=== PATIENT | female | born 1955 | race Two or more races ===

== ENCOUNTER 2023-03-19 13:17 | Inpatient (IN) | payer OTHER ==
[~2023-03-19] VITALS: Ht 170.2 cm; Wt 96.1 kg
[2023-03-19] MEDS ORDERED: PROCHLORPERAZINE EDISYLATE 5 MG/ML 2ML VIAL IM ONE ×2 (13:30→18:15)
[2023-03-19] MEDS ORDERED: SODIUM CHLORIDE 0.9% 1,000 ML IVB ONE (13:30)
[2023-03-19 14:43] LABS: Basophils # (auto) 0.1 10 ^3/uL (0-0.2); Eosinophils # (auto) 0 10 ^3/uL (0-0.8); Eosinophils % (auto) 0.2 % (0.0-7.0); Lymphocytes # (auto) 1.7 10 ^3/uL (0.4-5.4); White Blood Cell 14.1 10^3/uL (4.4-10.8)
[2023-03-19 14:44] LABS: Albumin 2.8 g/dL (3.4-5.0); Calcium 9.6 mg/dL (8.5-10.1); Potassium 3.9 mmol/L (3.5-5.1)
[2023-03-19 14:45] LABS: Basophils % (auto) 0.4 % (0.0-2.0); Hematocrit 40.2 % (36.0-46.0); Hemoglobin 13.3 g/dL (12.2-16.2); Lymphocytes % (auto) 12.3 % (10.0-50.0); Mean Corpuscular Hemoglobin 27.4 pg (28.0-32.0); Mean Corpuscular Volume 83.2 fL (80.0-100.0); Neutrophils # (auto) 11.3 10 ^3/uL (1.6-8.6); Neutrophils % (auto) 80.1 % (37.0-80.0); Red Blood Cells 4.83 10^6/uL (4.0-5.20); Red Cell Distribution Width 14.8 % (11.8-14.3)
[2023-03-19 14:48] LABS: Bilirubin, Total 0.3 mg/dL (0.2-1.0)
[2023-03-19 15:03] VITALS: PULSE 63; RESP 13; O2SAT 99
[2023-03-19] MEDS ORDERED: CARVEDILOL 3.125 MG TAB PO ONE (15:15)
[2023-03-19 16:02] LABS: INR 1.1 (0.9-1.15); Partial Thromboplastin Time 30.4 SEC (24.5-34.5)
[2023-03-19] MEDS ORDERED: LISINOPRIL 20 MG TAB PO ONE (16:15)
[2023-03-19] MEDS ORDERED: amLODIPine BESYLATE 5 MG TAB PO ONE (16:15)
[2023-03-19 17:26] LABS: Urine Bacteria NONE SEEN /hpf (None Seen); Urine Blood Negative /uL (Negative); Urine Specific Gravity 1.014 (1.001-1.035); Urine WBC 1 /hpf (0 - 5)
[2023-03-19] MEDS ORDERED: MORPHINE SULFATE INJ 2 MG/ml SYRG IV ONE (18:15)
[2023-03-19] MEDS ORDERED: PANTOPRAZOLE 40 MG/10 ML VIAL INJ IV ONE (18:15)
[2023-03-19] MEDS ORDERED: MAGNESIUM CITRATE SOLUTION 300 ML BTL PO ONE (18:15)
[2023-03-19 19:30] VITALS: PULSE 89; RESP 19; O2SAT 94
[2023-03-19] MEDS ORDERED: NITROGLYCERIN 0.4 MG SL TAB SL PRN (20:15)
[2023-03-19] MEDS ORDERED: DOCUSATE SOD 100 MG CAP PO PRN (20:15)
[2023-03-19] MEDS ORDERED: FLEET ENEMA(ADULT) 135 ML PR ONE (20:15)
[2023-03-19] MEDS ORDERED: hydrALAZINE HCL 20 MG/ML VL IV PRN (20:15)
[2023-03-19] MEDS ORDERED: DEXTROSE (50%) 50ML SYRG IV PRN (20:15)
[2023-03-19] MEDS ORDERED: ACETAMINOPHEN 325 MG TAB PO PRN (20:15)
[2023-03-19] MEDS: ACCU-CHEK COMFORT CURVE STRIP VI SCH (21:47)
[2023-03-19] MEDS: ATORVASTATIN 20 MG TAB PO SCH (22:02)
[2023-03-19] MEDS: SODIUM CHLOR 0.9% PF (SALINE LOCK) 10ML VIAL/SYR IV SCH (22:02)
[2023-03-19] MEDS: FAMOTIDINE (10MG/ML) 2ML VL IV SCH (22:03)
[2023-03-19] MEDS: InsuLIN REG 1unit/0.01ml Soln (100units/ml) SC SCH (22:04)
[2023-03-19] MEDS: HYDROcodone-ACET 5/325MG TAB PO PRN (23:47)
[2023-03-20 00:54] VITALS: PULSE 67; RESP 13; O2SAT 95
[2023-03-20 05:50] LABS: Basophils # (auto) 0.1 10 ^3/uL (0-0.2); Basophils % (auto) 0.4 % (0.0-2.0); Eosinophils # (auto) 0.1 10 ^3/uL (0-0.8); Eosinophils % (auto) 0.5 % (0.0-7.0); Hematocrit 35.1 % (36.0-46.0); Hemoglobin 11.3 g/dL (12.2-16.2); Lymphocytes # (auto) 2.9 10 ^3/uL (0.4-5.4); Mean Corpuscular Hemoglobin 27.2 pg (28.0-32.0); Mean Corpuscular Hgb Conc. 32.3 g/dL (32.0-36.0); Mean Corpuscular Volume 84.2 fL (80.0-100.0); Monocytes # (auto) 1.6 10 ^3/uL (0-1.3); Monocytes % (auto) 10.9 % (0.0-12.0); Neutrophils % (auto) 68.2 % (37.0-80.0); Red Blood Cells 4.17 10^6/uL (4.0-5.20); White Blood Cell 14.7 10^3/uL (4.4-10.8)
[2023-03-20 05:52] LABS: Potassium 3.5 mmol/L (3.5-5.1)
[2023-03-20 06:04] LABS: Albumin 2.4 g/dL (3.4-5.0); BUN/Creatinine Ratio 14.8 (10.0-20.0); Bilirubin, Total 0.5 mg/dL (0.2-1.0); Calcium 8.8 mg/dL (8.5-10.1); Total Protein 6.2 g/dL (6.4-8.2)
[2023-03-20] MEDS: SODIUM CHLOR 0.9% PF (SALINE LOCK) 10ML VIAL/SYR IV SCH ×3 (06:27→23:17)
[2023-03-20] MEDS: HYDROcodone-ACET 5/325MG TAB PO PRN ×2 (06:32→17:18)
[2023-03-20] MEDS: ACCU-CHEK COMFORT CURVE STRIP VI SCH ×4 (06:33→23:43)
[2023-03-20] MEDS: InsuLIN REG 1unit/0.01ml Soln (100units/ml) SC SCH ×3 (06:47→17:20)
[2023-03-20 09:30] VITALS: PULSE 78; RESP 18; O2SAT 97
[2023-03-20] MEDS ORDERED: MORPHINE SULFATE INJ 2 MG/ml SYRG IV ONE (10:00)
[2023-03-20] MEDS: FAMOTIDINE (10MG/ML) 2ML VL IV SCH (11:22)
[2023-03-20] MEDS: ASPirin 81 mg TAB PO SCH (11:23)
[2023-03-20] MEDS: amLODIPine BESYLATE 5 MG TAB PO SCH (11:23)
[2023-03-20] MEDS: LISINOPRIL 10 MG TAB PO SCH (11:24)
[2023-03-20] MEDS: ALPRAZolam 0.25 MG TAB PO PRN (12:39)
[2023-03-20] MEDS ORDERED: ATOR20TA50 PO (13:35)
[2023-03-20] MEDS ORDERED: LISIPOW (13:35)
[2023-03-20] MEDS ORDERED: CARVEDILOL (13:35)
[2023-03-20] MEDS ORDERED: METF-372 PO (13:35)
[2023-03-20] MEDS ORDERED: GLIPPOW9 (13:35)
[2023-03-20] MEDS ORDERED: PLAVIX (13:35)
[2023-03-20] MEDS ORDERED: CLOP75TA28 PO (13:40)
[2023-03-20] MEDS ORDERED: LISI-285 PO (13:40)
[2023-03-20] MEDS ORDERED: ATOR-47 PO (13:40)
[2023-03-20] MEDS ORDERED: CARV6.2551 PO (13:40)
[2023-03-20] MEDS ORDERED: FLEET ENEMA(ADULT) 135 ML PR ONE (14:30)
[2023-03-20] MEDS ORDERED: MILK OF MAGNESIA 30ML SUSP PO ONE (14:30)
[2023-03-20] MEDS ORDERED: POLYETHYLENE GLYCOL 17 GM PWDR PO ONE (14:30)
[2023-03-20] MEDS: ONDANSETRON HCL 4 MG/2 ML VIAL IV PRN (15:11)
[2023-03-20] MEDS: PANTOPRAZOLE 40 MG/10 ML VIAL INJ IV SCH ×2 (15:11→23:17)
[2023-03-20] MEDS: MORPHINE SULFATE INJ 2 MG/ml SYRG IV PRN ×2 (15:12→22:03)
[2023-03-20] MEDS ORDERED: GOLYTELY 4L KIT PO ONE (15:15)
[2023-03-20 19:20] VITALS: PULSE 68; RESP 13; O2SAT 95
[2023-03-20 23:16] VITALS: BP 112/55; PULSE 66; RESP 16; TEMP 98; TEMP 98.6; O2SAT 95
[2023-03-20] MEDS: ATORVASTATIN 20 MG TAB PO SCH (23:17)
[2023-03-21] MEDS: HYDROcodone-ACET 5/325MG TAB PO PRN ×4 (00:24→23:51)
[2023-03-21] MEDS: InsuLIN REG 1unit/0.01ml Soln (100units/ml) SC SCH ×5 (00:29→21:06)
[2023-03-21 05:00] VITALS: BP 115/51; PULSE 63; RESP 16; TEMP 98.2; O2SAT 90
[2023-03-21] MEDS: SODIUM CHLOR 0.9% PF (SALINE LOCK) 10ML VIAL/SYR IV SCH ×3 (07:11→20:45)
[2023-03-21] MEDS: ACCU-CHEK COMFORT CURVE STRIP VI SCH ×4 (07:12→20:47)
[2023-03-21 07:30] VITALS: PULSE 59; RESP 18; O2SAT 96
[2023-03-21] MEDS ORDERED: POLYETHYLENE GLYCOL 17 GM PWDR PO PRN (09:00)
[2023-03-21 09:49] VITALS: BP 134/66; PULSE 72; RESP 16; TEMP 98.2; O2SAT 94
[2023-03-21] MEDS: ASPirin 81 mg TAB PO SCH (10:02)
[2023-03-21] MEDS: LISINOPRIL 10 MG TAB PO SCH (10:02)
[2023-03-21] MEDS: MORPHINE SULFATE INJ 2 MG/ml SYRG IV PRN ×5 (10:03→20:47)
[2023-03-21] MEDS: PANTOPRAZOLE 40 MG/10 ML VIAL INJ IV SCH ×2 (10:03→20:45)
[2023-03-21] MEDS: amLODIPine BESYLATE 5 MG TAB PO SCH (10:03)
[2023-03-21] MEDS: ONDANSETRON HCL 4 MG/2 ML VIAL IV PRN (10:09)
[2023-03-21 14:10] LABS: Basophils # (auto) 0.1 10 ^3/uL (0-0.2); Basophils % (auto) 0.8 % (0.0-2.0); Eosinophils # (auto) 0.2 10 ^3/uL (0-0.8); Eosinophils % (auto) 1.6 % (0.0-7.0); Hematocrit 37.5 % (36.0-46.0); Lymphocytes # (auto) 2.2 10 ^3/uL (0.4-5.4); Lymphocytes % (auto) 15.3 % (10.0-50.0); Mean Corpuscular Hgb Conc. 32.1 g/dL (32.0-36.0); Mean Corpuscular Volume 84.2 fL (80.0-100.0); Monocytes # (auto) 1.1 10 ^3/uL (0-1.3); Monocytes % (auto) 7.4 % (0.0-12.0); Neutrophils % (auto) 74.9 % (37.0-80.0); Red Blood Cells 4.46 10^6/uL (4.0-5.20); Red Cell Distribution Width 15.5 % (11.8-14.3); White Blood Cell 14.6 10^3/uL (4.4-10.8)
[2023-03-21 14:27] LABS: BUN/Creatinine Ratio 15.6 (10.0-20.0)
[2023-03-21 15:25] VITALS: BP 143/63; PULSE 68; RESP 17; TEMP 98; O2SAT 94
[2023-03-21] MEDS: ALPRAZolam 0.25 MG TAB PO PRN (17:51)
[2023-03-21 20:00] VITALS: PULSE 72; PULSE 80; RESP 18; O2SAT 91
[2023-03-21] MEDS: ATORVASTATIN 20 MG TAB PO SCH (20:45)
[2023-03-21 22:19] VITALS: BP 120/62; PULSE 80; RESP 18; TEMP 98.7; O2SAT 91
[2023-03-22] VITALS (7 sets, daily range): BP systolic 115–150; BP diastolic 59–70; PULSE 61–80; RESP 15–18; TEMP 98.2–98.7; O2SAT 92–96
[2023-03-22] MEDS: MORPHINE SULFATE INJ 2 MG/ml SYRG IV PRN ×3 (02:42→23:04)
[2023-03-22] MEDS: ALPRAZolam 0.25 MG TAB PO PRN (06:03)
[2023-03-22] MEDS: InsuLIN REG 1unit/0.01ml Soln (100units/ml) SC SCH ×4 (06:08→21:33)
[2023-03-22] MEDS: ACCU-CHEK COMFORT CURVE STRIP VI SCH ×4 (06:09→21:17)
[2023-03-22] MEDS: SODIUM CHLOR 0.9% PF (SALINE LOCK) 10ML VIAL/SYR IV SCH ×3 (06:09→21:17)
[2023-03-22 06:10] LABS: BUN/Creatinine Ratio 17.2 (10.0-20.0); Potassium 3.9 mmol/L (3.5-5.1)
[2023-03-22 06:22] LABS: Basophils # (auto) 0.1 10 ^3/uL (0-0.2); Basophils % (auto) 0.6 % (0.0-2.0); Eosinophils # (auto) 0.4 10 ^3/uL (0-0.8); Eosinophils % (auto) 3.2 % (0.0-7.0); Hematocrit 36.5 % (36.0-46.0); Hemoglobin 11.8 g/dL (12.2-16.2); Lymphocytes # (auto) 2.4 10 ^3/uL (0.4-5.4); Lymphocytes % (auto) 18.5 % (10.0-50.0); Mean Corpuscular Hemoglobin 27.2 pg (28.0-32.0); Mean Corpuscular Hgb Conc. 32.2 g/dL (32.0-36.0); Mean Corpuscular Volume 84.5 fL (80.0-100.0); Monocytes # (auto) 1.1 10 ^3/uL (0-1.3); Monocytes % (auto) 8.3 % (0.0-12.0); Neutrophils % (auto) 69.4 % (37.0-80.0); Red Blood Cells 4.32 10^6/uL (4.0-5.20); Red Cell Distribution Width 15.4 % (11.8-14.3)
[2023-03-22] MEDS: HYDROcodone-ACET 5/325MG TAB PO PRN ×2 (08:11→17:48)
[2023-03-22] MEDS: PANTOPRAZOLE 40 MG/10 ML VIAL INJ IV SCH ×2 (09:59→21:17)
[2023-03-22] MEDS: amLODIPine BESYLATE 5 MG TAB PO SCH (09:59)
[2023-03-22] MEDS: LISINOPRIL 10 MG TAB PO SCH (09:59)
[2023-03-22] MEDS: ATORVASTATIN 20 MG TAB PO SCH (21:17)
[2023-03-23] MEDS: HYDROcodone-ACET 5/325MG TAB PO PRN ×3 (02:21→16:20)
[2023-03-23 06:52] LABS: Basophils # (auto) 0.1 10 ^3/uL (0-0.2); Basophils % (auto) 0.6 % (0.0-2.0); Eosinophils # (auto) 0.4 10 ^3/uL (0-0.8); Eosinophils % (auto) 3.3 % (0.0-7.0); Hematocrit 37.2 % (36.0-46.0); Hemoglobin 11.6 g/dL (12.2-16.2); Lymphocytes # (auto) 2.4 10 ^3/uL (0.4-5.4); Lymphocytes % (auto) 17.7 % (10.0-50.0); Mean Corpuscular Hemoglobin 27.4 pg (28.0-32.0); Mean Corpuscular Hgb Conc. 31.2 g/dL (32.0-36.0); Mean Corpuscular Volume 87.8 fL (80.0-100.0); Monocytes # (auto) 1.5 10 ^3/uL (0-1.3); Neutrophils # (auto) 9.1 10 ^3/uL (1.6-8.6); Neutrophils % (auto) 67.4 % (37.0-80.0); Nucleated Red Blood Cells % 0.1 %; Red Blood Cells 4.24 10^6/uL (4.0-5.20); Red Cell Distribution Width 15.5 % (11.8-14.3); White Blood Cell 13.4 10^3/uL (4.4-10.8)
[2023-03-23] MEDS: SODIUM CHLOR 0.9% PF (SALINE LOCK) 10ML VIAL/SYR IV SCH ×3 (06:52→22:00)
[2023-03-23] MEDS: ACCU-CHEK COMFORT CURVE STRIP VI SCH ×4 (06:52→22:21)
[2023-03-23] MEDS: InsuLIN REG 1unit/0.01ml Soln (100units/ml) SC SCH ×4 (06:55→22:00)
[2023-03-23 06:59] LABS: Anion Gap 8 (5-15); BUN/Creatinine Ratio 18.3 (10.0-20.0); Blood Urea Nitrogen 15 mg/dL (7-18); Calcium 8.6 mg/dL (8.5-10.1); Carbon Dioxide 25 mmol/L (21-32); Chloride 103 mmol/L (98-107); GFR African American 89 mL/min; GFR Non-African American 74 mL/min; Glucose 247 mg/dL (74-106); Sodium 136 mmol/L (136-145)
[2023-03-23 08:00] VITALS: PULSE 65
[2023-03-23 09:18] VITALS: BP 155/67; PULSE 67; RESP 20; TEMP 97.8; O2SAT 93
[2023-03-23] MEDS: LISINOPRIL 10 MG TAB PO SCH (09:18)
[2023-03-23] MEDS: PANTOPRAZOLE 40 MG/10 ML VIAL INJ IV SCH ×2 (09:18→22:21)
[2023-03-23] MEDS: amLODIPine BESYLATE 5 MG TAB PO SCH (09:19)
[2023-03-23 13:00] VITALS: BP 100/66; PULSE 66; RESP 20; TEMP 97.9; O2SAT 94
[2023-03-23 17:00] VITALS: BP 128/68; PULSE 89; RESP 21; TEMP 98; O2SAT 95
[2023-03-23 20:00] VITALS: PULSE 71; PULSE 76; RESP 20; O2SAT 98
[2023-03-23 21:54] VITALS: BP 131/55; PULSE 71; RESP 20; TEMP 98.2; O2SAT 98
[2023-03-23] MEDS: ATORVASTATIN 20 MG TAB PO SCH (22:20)
[2023-03-23] MEDS: CLINDAMYCIN HCL 150 MG CAP PO SCH ×2 (22:20→23:38)
[2023-03-23] MEDS: MORPHINE SULFATE INJ 2 MG/ml SYRG IV PRN ×3 (22:23→23:40)
[2023-03-24] MEDS: HYDROcodone-ACET 5/325MG TAB PO PRN ×2 (02:26→10:25)
[2023-03-24] MEDS: MORPHINE SULFATE INJ 2 MG/ml SYRG IV PRN ×2 (04:46→13:43)
[2023-03-24 05:00] VITALS: BP 134/64; PULSE 70; RESP 18; TEMP 97.9; O2SAT 98
[2023-03-24] MEDS: SODIUM CHLOR 0.9% PF (SALINE LOCK) 10ML VIAL/SYR IV SCH ×2 (06:00→13:41)
[2023-03-24] MEDS: CLINDAMYCIN HCL 150 MG CAP PO SCH ×2 (06:36→13:42)
[2023-03-24] MEDS: InsuLIN REG 1unit/0.01ml Soln (100units/ml) SC SCH ×3 (06:43→16:52)
[2023-03-24] MEDS: ACCU-CHEK COMFORT CURVE STRIP VI SCH ×3 (06:49→16:44)
[2023-03-24 08:00] VITALS: PULSE 64
[2023-03-24 08:49] VITALS: BP 139/61; PULSE 67; RESP 15; TEMP 98.1; O2SAT 91
[2023-03-24] MEDS: PANTOPRAZOLE 40 MG/10 ML VIAL INJ IV SCH (10:23)
[2023-03-24] MEDS: amLODIPine BESYLATE 5 MG TAB PO SCH (10:24)
[2023-03-24] MEDS: LISINOPRIL 10 MG TAB PO SCH (10:24)
[2023-03-24 13:02] VITALS: BP 120/59; PULSE 62; RESP 16; TEMP 98.3; O2SAT 91
[2023-03-24] MEDS ORDERED: CLOPIDOGREL BISULFATE 75 MG TAB PO SCH (15:30)
[2023-03-24 16:45] VITALS: BP 128/59; PULSE 69; RESP 15; TEMP 97.9; O2SAT 95
== END 2023-03-24 19:45 | DRG 391 ==
LOC: EDBD 13:17 → ER 13:17 → TELE 20:16 → TELE-EAST 03-20 21:33
PROVIDERS: ADMIT Internal Medicine; ATTEND Internal Medicine
DX: K59.00 Constipation, unspecified (principal); K22.6 Gastro-esophageal laceration-hemorrhage syndrome; L03.115 Cellulitis of right lower limb; L03.116 Cellulitis of left lower limb; R11.2 Nausea with vomiting, unspecified; I16.0 Hypertensive urgency; E11.65 Type 2 diabetes mellitus with hyperglycemia; D75.839 Thrombocytosis, unspecified; E11.51 Type 2 diabetes mellitus with diabetic peripheral angiopathy without gangrene; E78.5 Hyperlipidemia, unspecified; E88.09 Other disorders of plasma-protein metabolism, not elsewhere classified; F17.210 Nicotine dependence, cigarettes, uncomplicated; I50.9 Heart failure, unspecified; I11.0 Hypertensive heart disease with heart failure; K76.0 Fatty (change of) liver, not elsewhere classified; F41.9 Anxiety disorder, unspecified; D72.829 Elevated white blood cell count, unspecified; Z91.199 Patient's noncompliance with other medical treatment and regimen due to unspecified reason; Z80.9 Family history of malignant neoplasm, unspecified; Z82.49 Family history of ischemic heart disease and other diseases of the circulatory system; Z79.4 Long term (current) use of insulin
CPT/HCPCS: 36415; 71045; 74176; 80048; 80053; 81001; 82271; 82962; 83036; 83690; 84484; 85025; 85610; 85730; 86850; 86900; 86901; 87081; 93005; 96361; 96372; 96374; 96375; 97110; 97116; 97163; 97530; C9113; G0378; J1815; J2405; J3490

== ENCOUNTER 2023-08-19 23:31 | Observation (INO) | payer OTHER ==
[~2023-08-19] VITALS: Ht 170.2 cm; Wt 90.0 kg
[~2023-08-19 23:31] MED LIST: ATOR-47 PO; ATOR20TA50 PO; CARV6.2551 PO; CARVEDILOL; CLOP75TA28 PO; GLIPPOW9; LISI-285 PO; LISIPOW; METF-372 PO; PLAVIX
[2023-08-20] VITALS (10 sets, daily range): BP systolic 126–152; BP diastolic 48–78; PULSE 72–102; RESP 14–21; TEMP 36.6; O2SAT 96–100
[2023-08-20] MEDS ORDERED: NITROGLYCERIN 0.4 MG SL TAB SL PRN (05:45)
[2023-08-20] MEDS ORDERED: DEXTROSE (50%) 50ML SYRG IV PRN (05:45)
[2023-08-20] MEDS ORDERED: ONDANSETRON HCL 4 MG/2 ML VIAL IV PRN (05:45)
[2023-08-20] MEDS: ACCU-CHEK COMFORT CURVE STRIP VI SCH ×3 (06:13→18:00)
[2023-08-20] MEDS: InsuLIN REG 1unit/0.01ml Soln (100units/ml) SC SCH ×3 (07:06→18:00)
[2023-08-20 07:58] LABS: Urine Epithelial Cast None Seen /hpf (<5); Urine WBC None Seen /hpf (0 - 5)
[2023-08-20 08:26] LABS: Urine Bacteria NONE SEEN /hpf (None Seen); Urine Blood Negative /uL (Negative); Urine Clarity Clear (Clear); Urine Color Colorless (Yellow); Urine Protein, UAD Negative (Negative); Urine Specific Gravity 1.007 (1.001-1.035); Urine Urobilinogen Normal (Negative); Urine pH 6.5 (5.0-8.0)
[2023-08-20] MEDS ORDERED: cefTRIAXone 1GM/50ML D5W 50 ML IV SCH (09:00)
[2023-08-20 09:15] LABS: Basophils # (auto) 0.1 10 ^3/uL (0-0.2); Eosinophils # (auto) 0.2 10 ^3/uL (0-0.8); Eosinophils % (auto) 1.9 % (0.0-7.0); Hemoglobin 8.5 g/dL (12.2-16.2); Monocytes # (auto) 0.7 10 ^3/uL (0-1.3); Red Cell Distribution Width 16.5 % (11.8-14.3)
[2023-08-20 09:18] LABS: Basophils % (auto) 0.7 % (0.0-2.0); Hematocrit 26.8 % (36.0-46.0); Lymphocytes # (auto) 1.4 10 ^3/uL (0.4-5.4); Lymphocytes % (auto) 13.5 % (10.0-50.0); Mean Corpuscular Hemoglobin 24.8 pg (28.0-32.0); Mean Corpuscular Hgb Conc. 31.6 g/dL (32.0-36.0); Mean Corpuscular Volume 78.6 fL (80.0-100.0); Monocytes % (auto) 6.9 % (0.0-12.0); Neutrophils # (auto) 7.8 10 ^3/uL (1.6-8.6); Red Blood Cells 3.41 10^6/uL (4.0-5.20); White Blood Cell 10.1 10^3/uL (4.4-10.8)
[2023-08-20 09:27] LABS: Anion Gap 10 (5-15); Carbon Dioxide 27 mmol/L (20-30); Chloride 103 mmol/L (98-107); Potassium 3.8 mmol/L (3.5-5.1); Sodium 140 mmol/L (136-145)
[2023-08-20 09:28] LABS: INR 1.04 (0.9-1.15); Prothrombin Time 10.9 sec (9.3-11.8)
[2023-08-20 09:29] LABS: Calcium 10.2 mg/dL (8.5-10.1)
[2023-08-20] MEDS: MORPHINE SULFATE INJ 2 MG/ml SYRG IV PRN ×2 (09:29→13:30)
[2023-08-20 09:33] LABS: Glucose 261 mg/dL (74-106); Triglycerides 155 mg/dL (< 150)
[2023-08-20 09:34] LABS: BUN/Creatinine Ratio 19.3 (10.0-20.0); Blood Urea Nitrogen 17 mg/dL (9-23); LDL Cholesterol 60 mg/dL (< 100)
[2023-08-20 09:35] LABS: Cholesterol 123 mg/dL (< 200); HDL Cholesterol 42 mg/dL (40-59)
[2023-08-20] MEDS ORDERED: METOPROLOL TARTRATE 25 MG TAB PO SCH (10:00)
[2023-08-20] MEDS ORDERED: CLOPIDOGREL BISULFATE 75 MG TAB PO SCH (10:00)
[2023-08-20] MEDS ORDERED: ASPirin-EC 81 mg tab PO SCH (10:00)
[2023-08-20] MEDS ORDERED: ENOXAPARIN SOD 100 MG/1 ML SYRINGE SC SCH (10:00)
[2023-08-20] MEDS ORDERED: HEPARIN DRIP/D5W 100UNITS/ML 250 ML IV SCH (11:00)
[2023-08-20] MEDS ORDERED: HEPARIN SODIUM (PORCINE) 5000 UNITS/ML 1ML VIAL IV ONE (11:00)
[2023-08-20] MEDS ORDERED: LIDOCAINE 2%HCL (LOCAL ANESTH.) INJ 20ML MDV ONE (14:36)
[2023-08-20] MEDS ORDERED: IODIXANOL 320MG/ML 100ML BTL IV ONE (14:36)
[2023-08-20] MEDS ORDERED: VERAPAMIL 2.5MG/ML INJ 2ML VIAL IV ONE (14:42)
[2023-08-20] MEDS ORDERED: HEPARIN SODIUM (PORCINE) 5000 UNITS/ML 1ML VIAL ONE (14:42)
[2023-08-20] MEDS ORDERED: ANGIOMAX 250 MG VIAL IV ONE (14:42)
[2023-08-20] MEDS ORDERED: fentaNYL CITRATE 100 MCG/2 ML VL ONE (14:42)
[2023-08-20] MEDS ORDERED: MIDAZOLAM HCL 2MG/2ML 2ml VIAL (1mg/ml) ONE (14:43)
[2023-08-20] MEDS ORDERED: SODIUM CHL 0.9% 0 ML ONE (14:43)
[2023-08-20] MEDS ORDERED: diphenhdrAMINE HCL 50 MG/1 ML VL ONE (14:52)
[2023-08-20] MEDS ORDERED: ASPI-543 PO (16:12)
[2023-08-20] MEDS ORDERED: ATORVASTATIN 20 MG TAB PO SCH (22:00)
[2023-08-22 09:38] LABS: Hepatitis B Surface Antigen Negative (Negative)
[2023-08-22 09:59] LABS: Hepatitis C Antibody Negative (Negative)
== END 2023-08-20 22:05 | disposition home or self-care (01) ==
LOC: TELE-WESTW 08-20 05:29 → INTOOBSV 08-20 05:29
PROVIDERS: ADMIT Internal Medicine; ATTEND Internal Medicine
DX: I21.4 Non-ST elevation (NSTEMI) myocardial infarction (principal); I11.0 Hypertensive heart disease with heart failure; I50.9 Heart failure, unspecified; E78.5 Hyperlipidemia, unspecified; E11.8 Type 2 diabetes mellitus with unspecified complications; D64.9 Anemia, unspecified; I25.10 Atherosclerotic heart disease of native coronary artery without angina pectoris; J96.10 Chronic respiratory failure, unspecified whether with hypoxia or hypercapnia; J44.9 Chronic obstructive pulmonary disease, unspecified; E66.9 Obesity, unspecified; L81.9 Disorder of pigmentation, unspecified; I70.8 Atherosclerosis of other arteries; I73.9 Peripheral vascular disease, unspecified; Z79.899 Other long term (current) drug therapy; Z68.31 Body mass index [BMI] 31.0-31.9, adult; Z79.02 Long term (current) use of antithrombotics/antiplatelets; Z87.891 Personal history of nicotine dependence; Z95.5 Presence of coronary angioplasty implant and graft; Z79.84 Long term (current) use of oral hypoglycemic drugs
CPT/HCPCS: 36415; 80048; 80061; 81001; 83036; 84443; 84484; 85025; 85610; 85730; 86803; 86850; 86900; 86901; 87081; 87340; 93005; 93306; 93458; 96365; 96366; 96372; 96375; 96376; C1760; C1769; C1894; G0378; J1200; J1644; J1815; J2250; J2270; J3010; J7030; Q9967; 99152; 99153